=== PATIENT | female | born 1965 | race Caucasian/White ===

== ENCOUNTER 2017-04-13 15:08 | Emergency (ER) | payer BC, OTHER ==
[2017-04-13] MEDS ORDERED: HYDROmorphone 1 MG/ML Syringe IVPUSH ONE (15:46)
[2017-04-13] MEDS ORDERED: Sodium Chloride 0.9% 10 ML Syringe FLUSH PRN (15:46)
[2017-04-13] MEDS ORDERED: Sodium Chloride 0.9% 1,000 ML IV ONE (15:46)
[2017-04-13] MEDS ORDERED: Ondansetron 4 MG/2 ML SDV IVPUSH ONE (15:46)
--- NOTE | 2017-04-13 17:34 | US ---
Limited abdominal ultrasound: Multiple real-time images of the upper right abdomen were obtained. Comparison: Prior CT abdomen and pelvis study of 07/12/15 Technologist's note: Suboptimal exam due to body habitus Liver is somewhat echogenic raising the possibility of fatty infiltration. Gallbladder contains no gallstones. No gallbladder wall thickening or biliary duct dilatation is seen. Right kidney shows no hydronephrosis or mass. Right kidney measures 10.8 cm in length. Visualized portions of the pancreas appear without definite abnormality. Inferior vena cava is patent. Portal vein shows hepatopedal flow. Impression: 1. Probable fatty infiltration within the liver. 2. No additional abnormality is identified on right upper quadrant abdominal ultrasound. Diagnostic code #3
--- NOTE | 2017-04-13 17:58 | EDM.PDOC ---
ED HPI GENERAL MEDICAL PROBLEM - General Chief Complaint: Abdominal Pain Stated Complaint: PAIN IN GALLBLADDER Time Seen by Provider: 04/13/17 15:30 Source of Information: Reports: Patient History Limitations: Reports: No Limitations - History of Present Illness INITIAL COMMENTS - FREE TEXT/NARRATIVE: 51-year-old female presents for evaluation and treatment of her right upper quadrant abdominal pain. Patient reports she has been experiencing pain for the last week. States it is steadily worsening. She was seen by her primary care provider on Saturday. She had labs and a CT scan done. She states that she was told her CRP was elevated and she had a "fatty liver "on CT. She does not recall hearing anything about stones seen on CT. She states she is scheduled to have a HIDA scan this week. Current symptoms include right upper quadrant abdominal pain, decreased appetite , vomiting and bloating. She denies any fevers, cough or diarrhea. She states she is not passing much gas. Reports she vomited twice yesterday. Last intake was around 10:30 this morning. States she had a grapefruit. Last bowel movement was yesterday. She has appreciated the abdominal pain is much worse after eating. Rates the pain at a scale of 3. Patient was able to pull up her [employer] chart. reports that her lipase was 53, amylase was 54, white blood cell count was 4.0 and CRP was 7.6 on her Saturday lab studies. Duration: Day(s): (6) Location: Reports: Abdomen (RUQ) Treatments REHABILITATION TECH: Reports: Other (see below) Other Treatments REHABILITATION TECH: tramadol last noc Right Upper Abdomen Pain Score (Numeric/FACES): 4 - Related Data Allergies Allergy/AdvReac Type Severity Reaction Status Date / Time No Known Drug Allergies Allergy n/a Verified 05/25/15 08:53 Home Meds: Home Meds Acetaminophen/oxyCODONE [Percocet 325-5 MG] 1 tab PO Q4HR PRN #15 tab 04/13/17 [ Rx] Cetirizine [ZyrTEC] 10 mg PO DAILY 04/13/17 [History] Ondansetron [Zofran ODT] 4 mg PO Q6H PRN #15 tab.dis 04/13/17 [Rx] Pantoprazole Sodium [Protonix] 40 mg PO DAILY 04/13/17 [History] Topiramate 25 mg PO DAILY 04/13/17 [History] Venlafaxine [Effexor XR] 150 mg PO DAILY 04/13/17 [History] traMADol [Ultram] 50 mg PO Q6H PRN 04/13/17 [History] Past Medical History Gastrointestinal History: Reports: GERD Musculoskeletal History: Reports: RA Neurological History: Reports: Migraines Psychiatric History: Reports: Anxiety, Other (See Below) Other Psychiatric History: effexor for hot flashes - Past Surgical History Female Surgical History: Reports: Hysterectomy Oncologic Surgical History: Reports: Mastectomy Other Oncologic Surgeries/Procedures: right Social & Family History - Tobacco Use Smoking Status *Q: Never Smoker - Caffeine Use Caffeine Use: Reports: Coffee - Recreational Drug Use Recreational Drug Use: No ED ROS GENERAL - Review of Systems Review Of Systems: See Below Constitutional: Reports: Decreased Appetite. Denies: Fever Respiratory: Denies: Cough GI/Abdominal: Reports: Abdominal Pain (RUQ), Nausea, Vomiting, Other (bloating) . Denies: Diarrhea, Flatus : Reports: No Symptoms ED EXAM, GI/ABD - Physical Exam Exam: See Below Exam Limited By: No Limitations General Appearance: Alert, WD/WN, No Apparent Distress, Obese Ears: Normal External Exam Nose: Normal Inspection Throat/Mouth: Normal Inspection, Normal Oropharynx, Normal Voice, No Airway Compromise Respiratory/Chest: No Respiratory Distress, Lungs Clear, Normal Breath Sounds Cardiovascular: Normal Peripheral Pulses, Regular Rate, Rhythm, No Murmur GI/Abdominal Exam: Normal Bowel Sounds, Soft, Tender (RUQ), Other (+ fields's sign, no pain at [place]urn[place] point). No: Guarding, Rebound Neurological: Alert, Oriented, Normal Cognition Psychiatric: Normal Affect, Normal Mood Skin Exam: Warm, Dry, Normal Color Course - Vital Signs Last Recorded V/S: Last Vital Signs Temp 36.7 C 04/13/17 15:20 Pulse 77 04/13/17 15:20 Resp 20 04/13/17 15:20 BP 143/82 H 04/13/17 15:20 Pulse Ox 99 04/13/17 15:20 - Orders/Labs/Meds Labs: Laboratory Tests 04/13/17 04/13/17 Range/Units 16:15 16:15 WBC 5.13 (3.98-10.04) K/mm3 RBC 3.43 L (3.98-5.22) M/mm3 Hgb 9.8 L (11.2-15.7) gm/L Hct 31.2 L (34.1-44.9) % MCV 91.0 (79.4-94.8) fl MCH 28.6 (25.6-32.2) pg MCHC 31.4 L (32.2-35.5) g/dl RDW Std Deviation 44.7 (36.4-46.3) fL Plt Count 433 H (182-369) K/mm3 MPV 9.7 (9.4-12.3) fl Neutrophils % (Manual) 61 H (40-60) % Band Neutrophils % 0 (0-10) % Lymphocytes % (Manual) 28 (20-40) % Atypical Lymphs % 0 % Monocytes % (Manual) 10 (2-10) % Eosinophils % (Manual) 1 (0.7-5.8) % Basophils % (Manual) 0 L (0.1-1.2) Platelet Estimate Adequate Polychromasia Few Poikilocytosis 1+ slight Ovalocytes 1+ slight RBC Morph Comment Not Reportable Sodium 142 (136-145) mEq/L Potassium 3.9 (3.5-5.1) mEq/L Chloride 103 (98-107) mEq/L Carbon Dioxide 26 (21-32) mEq/L Anion Gap 16.9 H (5-15) BUN 16 (7-18) mg/dL Creatinine 0.9 (0.55-1.02) mg/dL Est Cr Clr Drug Dosing 72.92 mL/min Estimated GFR (MDRD) > 60 (>60) mL/min BUN/Creatinine Ratio 17.8 (14-18) Glucose 91 (74-106) mg/dL Calcium 9.4 (8.5-10.1) mg/dL Total Bilirubin 0.3 (0.2-1.0) mg/dL AST 56 H (15-37) U/L ALT 59 (14-59) U/L Alkaline Phosphatase 82 (46-116) U/L C-Reactive Protein 0.6 (<1.0) mg/dL Total Protein 7.4 (6.4-8.2) g/dl Albumin 4.2 (3.4-5.0) g/dl Globulin 3.2 gm/dL Albumin/Globulin Ratio 1.3 (1-2) Lipase 172 (73-393) U/L Meds: Medications Discontinued Medications Generic Name Dose Route Start Last Admin Trade Name Freq PRN Reason Stop Dose Admin Hydromorphone HCl 1 mg 04/13/17 15:46 04/13/17 16:18 Dilaudid IVPUSH 04/13/17 15:47 1 mg ONETIME ONE Administration Sodium Chloride 1,000 mls @ 999 mls/hr 04/13/17 15:46 04/13/17 16:14 Normal Saline IV 04/13/17 16:46 999 mls/hr ONETIME ONE Administration Ondansetron HCl 4 mg 04/13/17 15:46 04/13/17 16:17 Zofran IVPUSH 04/13/17 15:47 4 mg ONETIME ONE Administration Sodium Chloride 10 ml 04/13/17 15:46 04/13/17 16:22 Saline Flush FLUSH 10 ml ASDIRECTED PRN Administration Keep Vein Open - Radiology Interpretation Free Text/Narrative:: RUQ abd ultrasound impression per Dr. Begum: 1. Possibly fatty infiltration within the liver. 2. No additional abnormality is identified on right upper quadrant abdominal ultrasound. - Re-Assessments/Exams Free Text/Narrative Re-Assessment/Exam: 04/13/17 17:44 Patient reports good pain control with the dilaudid. Case discussed with Dr. Matt Recommended pain control and HIDA scan this week as planned. Discussed disposition with the patient. She is in agreement with treatment plan. Reviewed labs and imaging with the patient. Will discharge home. Discharge instructions as documented. Departure - Departure Time of Disposition: 17:53 Disposition: Home, Self-Care 01 Condition: Fair Clinical Impression: Abdominal pain Qualifiers: Abdominal location: right upper quadrant Qualified Code(s): R10.11 - Right upper quadrant pain - Discharge Information Prescriptions: Acetaminophen/oxyCODONE [Percocet 325-5 MG] 1 tab PO Q4HR PRN #15 tab PRN Reason: Pain Ondansetron [Zofran ODT] 4 mg PO Q6H PRN #15 tab.dis PRN Reason: Nausea Instructions: Abdominal Pain, Adult, [id number] Referrals: Rosa Elena Lara, GERIATRIC ASSISTANT [Primary Care Provider] - Forms: ED Department Discharge Additional Instructions: You were given medication in the ER that can affect your ability to drive and operate machinery. Do not drive or operate machinery within 12 hours of taking narcotic pain medication. HIDA scan this week as planned. Recommend bland foods that are low in fat. Zofran 1 tab sublingual every 6 hours as needed for nausea. [id number] Tylenol or Motrin as for pain. For pain not relieved by over- the-counter Tylenol or Motrin may take Percocet 1 tab every 4-[address] or operative machinery with reports taking Percocet. Percocet can be habit -forming, I recommend you take his to these as needed to control your pain. Follow-up with primary care provider this week for recheck. Please return to the ER if your symptoms change or worsen.
== END 2017-04-13 18:30 | disposition home or self-care (01) ==
LOC: JD.ED 15:08
DX: R10.11 Right upper quadrant pain (principal); Z79.899 Other long term (current) drug therapy; Z90.710 Acquired absence of both cervix and uterus
CPT/HCPCS: 36415; 76705; 80053; 83690; 85025; 86140; 96361; 96374; 96375; 99285; J1170; J2405; J7040; J7050; 99284